=== PATIENT | female | born 1980 | race African-American/Black ===

== ENCOUNTER 2016-05-18 10:03 | Emergency (ER) | payer MEDICAID ==
[~2016-05-18] VITALS: Ht 172.7 cm; Wt 143.0 kg
[~2016-05-18 10:03] MED LIST: HYDR-3533 PO
[2016-05-18 10:08] VITALS: BP 138/84; PULSE 110; RESP 16; TEMP 98.2; O2SAT 97
[2016-05-18] MEDS ORDERED: HYDR-3516 PO (10:31)
--- NOTE | 2016-05-18 10:31 | PD ---
HPI . Suprapubic pain Chief Complaint: Abdominal Pain Time Seen by Provider: 10:21 Travel History International Travel<30 days: No Contact w/Intl Traveler<30days: No Traveled to known affect area: No History of Present Illness HPI Patient presents with suprapubic pain and back pain. Her suprapubic pubic pain is exacerbated with urination. She states that she has been urinating more frequently than usual and that she has decreased volume of urine each urination. She denies any vaginal discharge. She does admit to some spotting. She states that she has not recently been sexually active so she cannot comment on dyspareunia. She is also complaining with some lower chest pain which is exacerbated by deep breathing. PFSH Past Medical History Diminished Hearing: No Deep Vein Thrombosis: Yes Musculoskeletal: Yes (BACK PAIN, RIGHT FOREARM FRACTURE) Immunizations Current: No ?: Not LMP: 04/30/16 Menopausal: Yes : 3 Para: 3 Miscarriage: 0 : 0 Past Surgical History Section: Yes (X 2) Gynecologic Surgery: Yes (C/S ) Social History Alcohol Use: No Tobacco Use: No Substance Use: No Allergies-Medications (Allergen,Severity, Reaction): Coded Allergies: Oxycodone (Verified Allergy, Severe, Anaphylaxis, 05/18/16) Reported Meds & Prescriptions Reported Meds & Active Scripts Active Reported Hydrocodone-Acetaminophen 5-325 mg Tab 1-2 Tab PO Q6H PRN Review of Systems Except as stated in HPI: all other systems reviewed are Neg General / Constitutional: No: Fever, Chills Cardiovascular: Positive: Chest Pain or Discomfort Gastrointestinal: Positive: Abdominal Pain Genitourinary: Positive: Frequency, Pelvic Pain, Vaginal Bleeding, No: Discharge Physical Exam Narrative GENERAL: Unusually tearful SKIN: Warm and dry. HEAD: Atraumatic. Normocephalic. EYES: Pupils equal and round. ENT: No nasal bleeding or discharge. Mucous membranes pink and moist. NECK: Trachea midline. Neck is supple. CARDIOVASCULAR: Regular rate and rhythm. Heart sounds are normal. RESPIRATORY: No accessory muscle use. Lungs are clear with full air movement throughout. GASTROINTESTINAL: Abdomen soft, non-tender, nondistended. : Normal female external genitalia. Blood tinged, thin. Positive cervical motion tenderness. Bilateral adnexal tenderness. She has a positive "chandelier sign." MUSCULOSKELETAL: No obvious deformities. No edema. NEUROLOGICAL: Awake and alert. No obvious cranial nerve deficits. Motor grossly within normal limits. Normal speech. PSYCHIATRIC: Appropriate mood and affect; insight and judgment normal. Data Data Last Documented VS Vital Signs Date Time Temp Pulse Resp B/P Pulse Ox O2 Delivery O2 Flow Rate FiO2 05/18/16 10:08 98.2 110 16 138/84 97 Orders Gc And Chlamydia Pcr (05/18/16 10:22) Wet Prep Profile (05/18/16 10:22) Urinalysis - C+S If Indicated (05/18/16 10:22) Ed Urine Pregnancytest Poc (05/18/16 10:22) [facility] Medical Decision Making Medical Screen Exam Complete: Yes Emergency Medical Condition: Yes Differential Diagnosis Differential diagnosis of pelvic pain includes but is not limited to UTI, PID, ectopic , spontaneous AB, constipation, viral illness Narrative Course Patient presents for evaluation of pelvic pain associated with low back pain and vaginal spotting. She also has some urinary symptoms consisting of frequency of urination and lower volumes of urine with each urination. She does not have dysuria per se but urination causes increased pelvic pain. Physical exam is consistent with PID. Diagnosis Primary Impression: PID (acute pelvic inflammatory disease) Patient Instructions: General Instructions, Pelvic Inflammatory Disease (ED) Med/Other Pt SpecificInfo: Prescription(s) given Scripts Tramadol (Ultram)50 Mg Tab50 Mg PO Q4H PRN (PAIN) #12 TAB Ref 0 Prov:Frances Saini MD 05/18/16 Ibuprofen 800 Mg [id number] Mg PO Q8H PRN (pain) #30 TAB Ref 0 Prov:Frances Saini MD 05/18/16 Metronidazole (Flagyl)500 Mg [id number] Mg PO twice a day #20 TAB Ref 0 Prov:Frances Saini MD 05/18/16 Doxycycline Hyclate 100 Mg [id number] Mg PO BID #20 CAP Ref 0 Prov:Frances Saini MD 05/18/16 Disposition: 01 DISCHARGE HOME Condition: Stable Frances Saini MD May 18, 2016 10:31
[2016-05-18 10:50] LABS: BLOOD, URINE LARGE (NEG); GLUCOSE,URINE NEG (NEG); KETONE, URINE 15 mg/dL (NEG); NITRITE,URINE NEG (NEG)
[2016-05-18] MEDS ORDERED: METR-1 PO (11:00)
[2016-05-18] MEDS ORDERED: DOXY100C PO (11:00)
[2016-05-18] MEDS ORDERED: IBUP800T23 PO (11:01)
[2016-05-18] MEDS ORDERED: ULTR50TA5 PO (11:01)
[2016-05-18 11:03] LABS: METHOD OF COLLECTION CLEAN CATCH; URINE COLOR YELLOW (YELLW/STRAW)
[2016-05-18 11:06] LABS: BACTERIA, URINE MOD /hpf; COMMENT (UR) CULTURE INDICATED; CULTURE IF INDICATED CULTURE INDICATED; SQUAMOUS EPITHELIAL CELL URINE > 8 /hpf (0-5)
[2016-05-18] MEDS ORDERED: cefTRIAXone 250 MG VIAL IM ONE (11:15)
[2016-05-18] MEDS ORDERED: KETOROLAC TROMETHAMINE 60 MG/2 ML (IM) VIAL IM ONE (11:15)
[2016-05-18 11:58] VITALS: BP 134/84
[2016-05-18 16:38] LABS: CHLAMYDIA PCR NOT DETECTED (NOT DETECT); NEISSERIA PCR NOT DETECTED (NOT DETECT)
[2016-05-19] MEDS ORDERED: cefTRIAXone 250 MG VIAL IM SCH (09:00)
== END 2016-05-18 12:01 | disposition home or self-care (01) ==
LOC: PHED 10:03
DX: N73.9 Female pelvic inflammatory disease, unspecified (principal); Z86.718 Personal history of other venous thrombosis and embolism
CPT/HCPCS: 81001; 84703; 87086; 87210; 87491; 87591; 96372; 99284; J0696; J1885

== ENCOUNTER 2016-10-07 11:23 | Emergency (ER) | payer MEDICAID ==
[~2016-10-07] VITALS: Ht 172.7 cm; Wt 144.4 kg
[~2016-10-07 11:23] MED LIST changes: +DOXY100C PO; +HYDR-3516 PO; -HYDR-3533 PO; +IBUP800T23 PO; +METR-1 PO; +ULTR50TA5 PO
[2016-10-07 11:34] VITALS: BP 130/80; PULSE 75; RESP 16; TEMP 98.2; O2SAT 99
--- NOTE | 2016-10-07 11:52 | PD ---
HPI . Headache Chief Complaint: Hypertension Time Seen by Provider: 11:44 Travel History International Travel<30 days: No Contact w/Intl Traveler<30days: No Traveled to known affect area: No History of Present Illness HPI Patient presents with the chief complaint of an occipital headache for the last couple days. She describes it as a pounding pain and rates it as 34/10. The headache is relieved with ibuprofen. The headache is exacerbated by light, sound and fast movement. She reports that she called her doctor about this and that her doctor told her that she needed to have the CT. PFSH Past Medical History Diminished Hearing: No Deep Vein Thrombosis: Yes Musculoskeletal: Yes (BACK PAIN, RIGHT FOREARM ORIF) Immunizations Current: No ?: Not Menopausal: Yes : 3 Para: 3 Miscarriage: 0 : 0 Past Surgical History Section: Yes (x3) Gynecologic Surgery: Yes (C/S ) Social History Alcohol Use: No Tobacco Use: No Substance Use: No Allergies-Medications (Allergen,Severity, Reaction): Coded Allergies: Oxycodone (Verified Allergy, Severe, Anaphylaxis, 10/07/16) Reported Meds & Prescriptions Reported Meds & Active Scripts Active No Active Prescriptions or Reported Medications Review of Systems Except as stated in HPI: all other systems reviewed are Neg Eyes: Positive: Photophobia, No: Diploplia, Blurred Vision HENT: Positive: Headaches Cardiovascular: No: Chest Pain or Discomfort Respiratory: No: Shortness of Breath Gastrointestinal: No: Nausea, Vomiting Physical Exam Narrative GENERAL: Awake and alert and in no acute distress. SKIN: Warm and dry. HEAD: Atraumatic. Normocephalic. EYES: Pupils equal and round. Extraocular movements are intact. NECK: Trachea midline. Neck is supple. CARDIOVASCULAR: Regular rate and rhythm. Heart sounds are normal. RESPIRATORY: No accessory muscle use. Lungs are clear with full air movement throughout. MUSCULOSKELETAL: No obvious deformities. No edema. NEUROLOGICAL: Awake and alert. No obvious cranial nerve deficits. Motor grossly within normal limits. Normal speech. Gait is normal. Finger-nose- finger exam is intact. PSYCHIATRIC: Appropriate mood and affect; insight and judgment normal. Data Data Last Documented VS Vital Signs Date Time Temp Pulse Resp B/P Pulse Ox O2 Delivery O2 Flow Rate FiO2 10/07/16 11:34 98.2 75 16 130/[address] Brain W/O Iv Contrast(Rout) (10/07/16 11:48) Iv Access Insert/Monitor (10/07/16 11:48) Sodium Chloride 0.9% Flush (Ns Flush) (10/07/16 12:00) Prochlorperazine Inj (Compazine Inj) (10/07/16 12:00) Diphenhydramine Inj (Benadryl Inj) (10/07/16 12:00) MDM Medical Decision Making Medical Screen Exam Complete: Yes Emergency Medical Condition: Yes Differential Diagnosis Differential diagnosis of headache includes but is not limited to migraine, muscle contraction headache, brain tumor, brain bleed Narrative Course Patient presents with chief complaint of headache. She reports that she was instructed to have a CT of her head. That has been ordered. I will treat her headache with IV Benadryl and Compazine. Head CT is normal. Emergency Department evaluation reveals no emergency medical condition. The patient is stable for discharge to home. Diagnosis Primary Impression: Headache Qualified Code: R51 - Acute nonintractable headache, unspecified headache type Patient Instructions: Acute Headache (DC), General Instructions Scripts No Active Prescriptions or Reported Meds Disposition: 01 DISCHARGE HOME Condition: Stable Frances Saini MD Oct 07, 2016 11:52
[2016-10-07] MEDS ORDERED: PROCHLORPERAZINE INJ 10 MG/2 ML VIAL IVP ONE (12:00)
[2016-10-07] MEDS ORDERED: diphenhydrAMINE HCL 50 MG/ML VIAL IVP ONE (12:00)
[2016-10-07] MEDS ORDERED: SODIUM CHLORIDE 0.9% FLUSH 10 ML FLUSH IVF PRN (12:00)
--- NOTE | 2016-10-07 12:21 | RADRPT ---
EXAM DATE/TIME: 10/07/2016 11:56 [facility] COMPARISON: No previous studies available for comparison. INDICATIONS : Cephalgia. Elevated blood pressure. RADIATION DOSE: 66.68 CTDIvol (mGy) MEDICAL HISTORY : Deep venous thrombosis. SURGICAL HISTORY : None. ENCOUNTER: Initial ACUITY: 4 - 6 days PAIN SCALE: 4/10 LOCATION: cranial TECHNIQUE: Multiple contiguous axial images were obtained of the head. Using automated exposure control and adj ustment of the mA and/or kV according to patient size, radiation dose was kept as low as reasonably a chievable to obtain optimal diagnostic quality images. DICOM format image data is available electro nically for review and comparison. FINDINGS: CEREBRUM: The ventricles are normal for age. No evidence of midline shift, mass lesion, hemorrhage or acute in farction. No extra-axial fluid collections are seen. POSTERIOR FOSSA: The cerebellum and brainstem are intact. The 4th ventricle is midline. The cerebellopontine angle i s unremarkable. EXTRACRANIAL: The visualized portion of the orbits is intact. SKULL: The calvaria is intact. No evidence of skull fracture. CONCLUSION: Normal examination for a patient of this age. Lennox Young MD on October 07, 2016 at 12:17 Board Certified Radiologist. This report was verified electronically.
== END 2016-10-07 12:40 | disposition home or self-care (01) ==
LOC: PHED 11:23
DX: R51 Headache (principal); Z86.718 Personal history of other venous thrombosis and embolism; Z87.39 Personal history of other diseases of the musculoskeletal system and connective tissue
CPT/HCPCS: 70450; 96374; 96375; 99285; J0780; J1200

== ENCOUNTER 2017-08-05 11:41 | Emergency (ER) | payer MEDICAID ==
[~2017-08-05] VITALS: Ht 170.2 cm; Wt 147.0 kg
[2017-08-05 11:45] VITALS: BP 173/92; PULSE 84; RESP 16; TEMP 98.5; O2SAT 96
[2017-08-05 12:17] LABS: BILIRUBIN, URINE NEG (NEG); BLOOD, URINE LARGE (NEG); GLUCOSE,URINE NEG (NEG); KETONE, URINE TRACE mg/dL (NEG); NITRITE,URINE NEG (NEG); PH, URINE 5.5 (5.0-8.5); URINE COLOR YELLOW (YELLW/STRAW); URINE LEUKOCYTE ESTERASE MOD (NEG)
[2017-08-05 12:26] LABS: AMORPHOUS SEDIMENT, URINE FEW; BACTERIA, URINE MOD /hpf
[2017-08-05 12:27] LABS: WHITE BLOOD CELL CLUMPS FEW
--- NOTE | 2017-08-05 13:01 | PD ---
HPI Chief Complaint: Complaint Time Seen by Provider: 12:35 Travel History International Travel<30 days: No Contact w/Intl Traveler<30days: No Traveled to known affect area: No History of Present Illness HPI 37-year-old female here with urinary frequency, and urgency 3 days. Denies fever chills. No nausea or vomiting. No difficulty urinating. No back pain. Symptom severity is moderate. She believes this is a UTI. She reports she had similar episodes with the last UTI although the symptoms are much less severe. Denies possibility of . No vaginal discharge. Not sexually active. No aggravating or alleviating factors. PFSH Past Medical History Medical History: Denies Significant Hx Diminished Hearing: No Deep Vein Thrombosis: Yes Headaches: Yes Hypertension: Yes Musculoskeletal: Yes (BACK PAIN, RIGHT FOREARM ORIF) Immunizations Current: No Migraines: Yes Tetanus Vaccination: > 5 Years Influenza Vaccination: Yes (2017) ?: Not LMP: 07/19/17 Menopausal: Yes : 3 Para: 3 Miscarriage: 0 : 0 Past Surgical History Section: Yes (X's 3) Gynecologic Surgery: Yes (C/S ) Social History Alcohol Use: No Tobacco Use: No Substance Use: No Allergies-Medications (Allergen,Severity, Reaction): Coded Allergies: oxycodone (Unverified Allergy, Severe, Anaphylaxis, 08/05/17) Reported Meds & Prescriptions Reported Meds & Active Scripts Active Macrobid (Nitrofurantoin Monoh/Nitrofur Macro) 100 Mg Cap 100 Mg PO BID 5 Days Review of Systems Except as stated in HPI: all other systems reviewed are Neg General / Constitutional: No: Fever Eyes: No: Visual changes HENT: No: Headaches Cardiovascular: No: Chest Pain or Discomfort Respiratory: No: Shortness of Breath Gastrointestinal: No: Abdominal Pain Genitourinary: Positive: Urgency, Frequency, No: Dysuria Musculoskeletal: No: Pain Skin: No Rash Physical Exam Narrative GENERAL: Alert and well-appearing 37-year-old female SKIN: Warm and dry. HEAD: Normocephalic. EYES: No scleral icterus. No injection or drainage. NECK: Supple, trachea midline. No JVD or lymphadenopathy. CARDIOVASCULAR: Regular rate and rhythm without murmurs, gallops, or rubs. RESPIRATORY: Breath sounds equal bilaterally. No accessory muscle use. GASTROINTESTINAL: Abdomen soft, non-tender, nondistended. No rebound or guarding MUSCULOSKELETAL: No cyanosis, or edema. BACK: Nontender without obvious deformity. No CVA tenderness. Data Data Last Documented VS Vital Signs Date Time Temp Pulse Resp B/P (MAP) Pulse Ox O2 Delivery O2 Flow Rate FiO2 08/05/17 11:45 98.5 84 16 173/92 (119) 96 Orders Orders Urinalysis - C+S If Indicated (08/05/17 11:47) Ed Urine Pregnancytest Poc (08/05/17 11:47) Urine Culture (08/05/17 11:45) Labs Laboratory Tests Test 08/05/17 11:45 Urine Collection Type CLEAN CATCH Urine Color YELLOW Urine Turbidity CLOUDY Urine pH 5.5 Urine Specific [place] GREATER/EQUAL 1.030 Urine Protein TRACE mg/dL Urine Glucose (UA) NEG mg/dL Urine Ketones TRACE mg/dL Urine Occult Blood LARGE Urine Nitrite NEG Urine Bilirubin NEG Urine Urobilinogen 0.2 MG/DL Urine Leukocyte Esterase MOD Urine RBC 50-99 /hpf Urine WBC 25-49 /hpf Urine WBC Clumps FEW Urine Squamous Epithelial Cells 6-8 /hpf Urine Amorphous Sediment FEW Urine Bacteria MOD /hpf Microscopic Urinalysis Comment CULTURE INDICATED Urine Collection Time 1145 MDM Medical Decision Making Medical Screen Exam Complete: Yes Emergency Medical Condition: Yes Differential Diagnosis UTI, pyelonephritis, nephrolithiasis Narrative Course 37-year-old female here with urinary complaint. She is nontoxic appearing. Abdomen is soft and nontender. UA positive for infection. Patient will be treated for UTI Diagnosis Primary Impression: UTI (urinary tract infection) Qualified Codes: N30.00 - Acute cystitis without hematuria Referrals: Primary Care Physician Additional Instructions: Antibiotics as directed Drink plenty of fluid. Follow-up with your primary doctor. Return if he develop new or worsening symptoms Scripts Nitrofurantoin Monohydrate Macrocrystals (Macrobid) 100 Mg Cap 100 MG PO BID for Infection for 5 Days, #10 CAP 0 Refills Prov: Gloria Richards 08/05/17 Disposition: 01 DISCHARGE HOME Condition: Stable Gloria Richards Aug 05, 2017 13:01
[2017-08-05] MEDS ORDERED: MACR100C2 PO (13:06)
== END 2017-08-05 13:40 | disposition home or self-care (01) ==
LOC: PHED 11:41 → PHEFT 13:40
DX: N30.00 Acute cystitis without hematuria (principal); I10 Essential (primary) hypertension; Z86.718 Personal history of other venous thrombosis and embolism
CPT/HCPCS: 81001; 84703; 87086; 99283

== ENCOUNTER 2017-08-26 08:01 | Emergency (ER) | payer MEDICAID ==
[~2017-08-26] VITALS: Ht 172.7 cm; Wt 143.0 kg
[~2017-08-26 08:01] MED LIST changes: -DOXY100C PO; -HYDR-3516 PO; -IBUP800T23 PO; +MACR100C2 PO; -METR-1 PO; -ULTR50TA5 PO
[2017-08-26 08:09] VITALS: BP 219/121; PULSE 88; RESP 16; TEMP 98.3; O2SAT 98
== END 2017-08-26 08:40 | disposition left against medical advice (07) ==
LOC: PHEFT 08:01
DX: K08.89 Other specified disorders of teeth and supporting structures (principal); Z53.21 Procedure and treatment not carried out due to patient leaving prior to being seen by health care provider
CPT/HCPCS: 99281